=== PATIENT | female | born 1965 | race Caucasian/White ===

== ENCOUNTER 2017-02-18 17:14 | Emergency (ER) | payer BC ==
[2017-02-18] MEDS ORDERED: Sodium Chloride 0.9% 10 ML Syringe FLUSH PRN (17:39)
[2017-02-18] MEDS ORDERED: Sodium Chloride 0.9% 2,000 ML IV STA (17:39)
[2017-02-18] MEDS ORDERED: Ondansetron 4 MG/2 ML SDV IVPUSH ONE (17:39)
[2017-02-18] MEDS ORDERED: HYDROmorphone 1 MG/ML Syringe IVPUSH ONE (17:41)
[2017-02-18] MEDS ORDERED: LORazepam 2 MG/ML MDV IVPUSH ONE (17:41)
[2017-02-18] MEDS ORDERED: Sodium Chloride 0.9% 1,000 ML IV ONE (18:41)
--- NOTE | 2017-02-18 18:56 | EDM.PDOC ---
ED HPI GI/ABDOMINAL - General Chief Complaint: Gastrointestinal Problem Stated Complaint: VOMITING SINCE SUNDAY NIGHT Time Seen by Provider: 02/18/17 17:35 Source of Information: Reports: Patient History Limitations: Reports: No limitations - History of Present Illness INITIAL COMMENTS - FREE TEXT/NARRATIVE: The patient presents with nausea, vomiting and some watery diarrhea for the past couple of days. She has generalized abdominal pain also. She has a history of abdominal pain and issues like this. She has not been here in awhile. She has chills but no fever. She has no chest pain or shortness of breath. She has no gallbladder but she does have an appendix. Timing/Duration: Reports: Day(s): (2) Location: generalized Quality: Reports: ache Severity: mild Context: Denies: sick contact, bad/questionable food, out of country travel, recent surgery, recent trauma Associated Symptoms (-Female): Reports: diarrhea, fever/chills, nausea/ vomiting. Denies: chest pain, back pain, shoulder pain, loss of appetite - Related Data Allergies/ADRs: Allergies Allergy/AdvReac Type Severity Reaction Status Date / Time amoxicillin [Amoxicillin] Allergy Hives Verified 02/18/17 17:33 oxycodone HCl [From Percocet] Allergy Redness Verified 02/18/17 17:33 Home Meds: Home Meds Albuterol [Proair HFA] 2 puff INH Q4HR PRN #1 inhaler 02/11/14 [Rx] PARoxetine [Paxil] 30 mg PO DAILY 03/06/14 [History] LORazepam [Ativan] 1 mg PO ASDIRECTED #14 tablet 04/07/14 [Rx] risperiDONE [Risperdal] 2 mg PO DAILY 06/15/15 [History] Ondansetron [Zofran ODT] 4 mg PO Q6H PRN #20 tab.dis 10/30/16 [Rx] Dicyclomine [Bentyl] 20 mg IM Q6H #12 vial 10/31/16 [Rx] Hydrocodone/Acetaminophen [Hydrocodon-Acetaminophn 10-325] 1 - 2 tab PO DAILY [History] Metoclopramide HCl [Reglan] 10 mg PO Q6H PRN #12 tablet 10/31/16 [Rx] Ondansetron [Zofran ODT] 4 mg PO Q6H PRN #20 tab.dis 02/18/17 [Rx] Past Medical History - Past Health History Medical/Surgical History: Denies Medical/Surgical History Cardiovascular History: Reports: High cholesterol, Hypertension Respiratory History: Reports: Bronchitis, recurrent Gastrointestinal History: Reports: GERD, Hiatal hernia Genitourinary History: Reports: UTI, recurrent 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: Musculoskeletal History: Reports: Back pain, chronic Psychiatric History: Reports: Anxiety - Infectious Disease History Infectious Disease History: Reports: Chicken pox, Shingles - Past Surgical History GI Surgical History: Reports: Cholecystectomy Social & Family History - Family History Cardiac: Reports: Afib Other Cardiac Family History: father Musculoskeletal: Reports: Back pain, chronic Other Musculoskeletal Family History: brother and sister Endocrine/Metabolic: Reports: Diabetes, type II Other Endocrine/Metabolic Family History: father Other Oncologic Family History: mother and father unknown origin - Tobacco Use Smoking Status *Q: Current Every Day Smoker Years of Tobacco use: 30 Packs/Tins Daily: 1.5 Used Tobacco, but Quit: No Month Tobacco Last Used: October Second Hand Smoke Exposure: No - Caffeine Use Caffeine Use: Reports: None - Alcohol Use Days Per Week of Alcohol Use: 2 Number of Drinks Per Day: 2 Total Drinks Per Week: 4 - Recreational Drug Use Recreational Drug Use: No - Living Situation & Occupation Living situation: Reports: single Occupation: unemployed ED ROS GENERAL - Review of Systems Review Of Systems: See Below Constitutional: Reports: no symptoms HEENT: Reports: No symptoms Respiratory: Reports: No Symptoms Cardiovascular: Reports: No symptoms Endocrine: Reports: no symptoms GI/Abdominal: Reports: Abdominal pain, Diarrhea, Nausea, Vomiting ED EXAM, GI/ABD - Physical Exam Exam: See Below Exam Limited By: No limitations General Appearance: alert, no apparent distress Ears: normal external exam Nose: normal inspection Head: atraumatic, normocephalic Neck: normal inspection Respiratory/Chest: no respiratory distress, lungs clear, normal breath sounds Cardiovascular: regular rate, rhythm, no edema, no murmur GI/Abdominal: soft, no organomegaly, no mass, tenderness (Mild generalized tenderness) Back Exam: normal inspection Course - Vital Signs Last Recorded V/S: Last Vital Signs Temp 97.1 F 02/18/17 17:33 Pulse 72 02/18/17 17:33 Resp 20 02/18/17 17:33 BP 148/90 H 02/18/17 17:33 Pulse Ox 96 02/18/17 17:33 - Orders/Labs/Meds Orders: Active Orders 24 hr Category Date Time Status Peripheral IV Care [RC] . DIRECTED Care 02/18/17 17:40 Active HYDROmorphone [Dilaudid] Med 02/18/17 19:35 Once 0.5 mg IVPUSH ONETIME ONE Sodium Chloride 0.9% [Normal Saline] 2,000 ml Med 02/18/17 17:39 Active IV .BOLUS Sodium Chloride 0.9% [Saline Flush] Med 02/18/17 17:39 Active 10 ml FLUSH ASDIRECTED PRN Zolpidem [Ambien] Med 02/18/17 19:36 Once 5 mg PO ONETIME ONE ED Antiemetic Medication Reflex [OM.PC] Stat Oth 02/18/17 17:40 Ordered Peripheral IV Insertion Adult [OM.PC] Stat Oth 02/18/17 17:39 Ordered Medication Orders Sodium Chloride (Normal Saline) 2,000 mls @ 1,000 mls/hr IV .BOLUS STA Stop: 02/18/17 19:38 Last Admin: 02/18/17 18:00 Dose: 1,000 mls/hr Sodium Chloride (Saline Flush) 10 ml FLUSH ASDIRECTED PRN PRN Reason: Keep Vein Open Last Admin: 02/18/17 18:07 Dose: 10 ml Labs: Laboratory Tests 02/18/17 02/18/17 Range/Units 17:50 17:50 WBC 12.16 H (3.98-10.04) K/mm3 RBC 4.79 (3.98-5.22) M/mm3 Hgb 15.3 (11.2-15.7) gm/L Hct 44.7 (34.1-44.9) % MCV 93.3 (79.4-94.8) fl MCH 31.9 (25.6-32.2) pg MCHC 34.2 (32.2-35.5) g/dl RDW Std Deviation 45.1 (36.4-46.3) fL Plt Count 231 (182-369) K/mm3 MPV 10.3 (9.4-12.3) fl Neut % (Auto) 84.1 H (34.0-71.1) % Lymph % (Auto) 10.8 L (19.3-51.7) % [place] % (Auto) 4.5 L (4.7-12.5) % Eos % (Auto) 0.1 L (0.7-5.8) Baso % (Auto) 0.2 (0.1-1.2) % Neut # (Auto) 10.22 H (1.56-6.13) K/mm3 Lymph # (Auto) 1.31 (1.18-3.74) K/mm3 [place] # (Auto) 0.55 H (0.24-0.36) K/mm3 Eos # (Auto) 0.01 L (0.04-0.36) K/mm3 Baso # (Auto) 0.03 (0.01-0.08) K/mm3 Sodium 140 (136-145) mEq/L Potassium 3.6 (3.5-5.1) mEq/L Chloride 102 (98-107) mEq/L Carbon Dioxide 24 (21-32) mEq/L Anion Gap 17.6 H (5-15) BUN 23 H (7-18) mg/dL Creatinine 0.9 (0.55-1.02) mg/dL Est Cr Clr Drug Dosing 59.80 mL/min Estimated GFR (MDRD) > 60 (>60) mL/min BUN/Creatinine Ratio 25.6 H (14-18) Glucose 178 H (74-106) mg/dL Calcium 9.8 (8.5-10.1) mg/dL Total Bilirubin 0.7 (0.2-1.0) mg/dL AST 24 (15-37) U/L ALT 40 (14-59) U/L Alkaline Phosphatase 68 (46-116) U/L Total Protein 8.5 H (6.4-8.2) g/dl Albumin 4.4 (3.4-5.0) g/dl Globulin 4.1 gm/dL Albumin/Globulin Ratio 1.1 (1-2) Lipase 88 (73-393) U/L Ethyl Alcohol 0.00 (0.00) gm% Meds: Medications Generic Name Dose Route Start Last Admin Trade Name Freq PRN Reason Stop Dose Admin Sodium Chloride 2,000 mls @ 1,000 mls/hr 02/18/17 17:39 02/18/17 18:00 Normal Saline IV 02/18/17 19:38 1,000 mls/hr .BOLUS STA Administration Sodium Chloride 10 ml 02/18/17 17:39 02/18/17 18:07 Saline Flush FLUSH 10 ml ASDIRECTED PRN Administration Keep Vein Open Discontinued Medications Generic Name Dose Route Start Last Admin Trade Name Leoncio PRN Reason Stop Dose Admin Hydromorphone HCl 1 mg 02/18/17 17:41 02/18/17 18:03 Dilaudid IVPUSH 02/18/17 17:42 1 mg ONETIME ONE Administration Sodium Chloride 1,000 mls @ 1,000 mls/hr 02/18/17 18:41 02/18/17 18:59 Normal Saline IV 02/18/17 19:40 1,000 mls/hr ONETIME ONE Administration Lorazepam 1 mg 02/18/17 17:41 02/18/17 18:34 Ativan IVPUSH 02/18/17 17:42 1 mg ONETIME ONE Administration Ondansetron HCl 4 mg 02/18/17 17:39 02/18/17 18:01 Zofran IVPUSH 02/18/17 17:40 4 mg ONETIME ONE Administration - Re-Assessments/Exams Free Text/Narrative Re-Assessment/Exam: 02/18/17 18:54 I ordered an IV NS 1L bolus, zofran 4mg IV and dilaudid 1mg IV. 02/18/17 18:55 Her WBC is elevated at 12.16. Her anion gap is elevated at 17.6. Her BUN is elevated at 23. Her glucose is elevated at 178. Her AST and ALT are normal. Her lipase is negative. Her ETOH is negative. 02/18/17 18:56 I will give her another liter of fluid and I will discharge her on some zofran. 02/18/17 19:36 She is still having some pain so I ordered some dilaudid 0.5mg IV. She is out of her ambien and asked for a dose here before she goes so she can sleep. I will order that. Departure - Departure Time of Disposition: 19:35 Disposition: Home, Self-Care 01 Condition: good Clinical Impression: Vomiting Abdominal pain Qualifiers: Abdominal location: generalized Qualified Code(s): R10.84 - Generalized abdominal pain Prescriptions: Ondansetron [Zofran ODT] 4 mg PO Q6H PRN #20 tab.dis PRN Reason: Nausea/Vomiting Forms: ED Department Discharge Additional Instructions: Take the zofran every 6 hours as needed for nausea and vomiting. Take your other medication as prescribed. Please return if you are worse. - My Orders Last 24 Hours: My Active Orders 02/18/17 17:39 Sodium Chloride 0.9% [Normal Saline] 2,000 ml IV .BOLUS Sodium Chloride 0.9% [Saline Flush] 10 ml FLUSH ASDIRECTED PRN Peripheral IV Insertion Adult [OM.PC] Stat 02/18/17 17:40 Peripheral IV Care [RC] . DIRECTED ED Antiemetic Medication Reflex [OM.PC] Stat 02/18/17 19:35 HYDROmorphone [Dilaudid] 0.5 mg IVPUSH ONETIME ONE 02/18/17 19:36 Zolpidem [Ambien] 5 mg PO ONETIME ONE - Assessment/Plan Last 24 Hours: My Active Orders 02/18/17 17:39 Sodium Chloride 0.9% [Normal Saline] 2,000 ml IV .BOLUS Sodium Chloride 0.9% [Saline Flush] 10 ml FLUSH ASDIRECTED PRN Peripheral IV Insertion Adult [OM.PC] Stat 02/18/17 17:40 Peripheral IV Care [RC] . DIRECTED ED Antiemetic Medication Reflex [OM.PC] Stat 02/18/17 19:35 HYDROmorphone [Dilaudid] 0.5 mg IVPUSH ONETIME ONE 02/18/17 19:36 Zolpidem [Ambien] 5 mg PO ONETIME ONE
[2017-02-18] MEDS ORDERED: HYDROmorphone 0.5 MG/0.5 ML Syringe IVPUSH ONE (19:35)
[2017-02-18] MEDS ORDERED: Zolpidem 10 MG Tab PO ONE (19:36)
[2017-02-18 21:08] VITALS: BP 134/84
== END 2017-02-18 20:50 | disposition home or self-care (01) ==
LOC: JD.ED 17:14
DX: R11.2 Nausea with vomiting, unspecified (principal); R10.84 Generalized abdominal pain; E78.00 Pure hypercholesterolemia, unspecified; I10 Essential (primary) hypertension; F17.210 Nicotine dependence, cigarettes, uncomplicated; Z88.1 Allergy status to other antibiotic agents; Z88.5 Allergy status to narcotic agent; Z79.899 Other long term (current) drug therapy
CPT/HCPCS: 36415; 80053; 83690; 85025; 96361; 96374; 96375; 96376; 99284; A9270; G0480; J1170; J2060; J2405; J7040; J7050

== ENCOUNTER 2017-02-19 15:26 | Emergency (ER) | payer BC ==
[2017-02-19 15:42] VITALS: BP 165/123
[2017-02-19] MEDS ORDERED: Ondansetron 4 MG/2 ML SDV IVPUSH ONE (16:04)
[2017-02-19] MEDS ORDERED: Famotidine 20 MG/2 ML SDV IVPUSH ONE (16:04)
[2017-02-19] MEDS ORDERED: Sodium Chloride 0.9% 10 ML Syringe FLUSH PRN (16:04)
[2017-02-19] MEDS ORDERED: Sodium Chloride 0.9% 1,000 ML IV SCH (16:15)
[2017-02-19] MEDS ORDERED: LORazepam 2 MG/ML MDV IVPUSH ONE (16:34)
[2017-02-19] MEDS ORDERED: Ketorolac 30 MG/ML SDV IVPUSH SCH (17:00)
[2017-02-19] MEDS ORDERED: HYDROmorphone 0.5 MG/0.5 ML Syringe IVPUSH ONE (17:49)
[2017-02-19] MEDS ORDERED: Metoclopramide 10 MG/2 ML SDV IVPUSH ONE (18:13)
--- NOTE | 2017-02-19 18:33 | EDM.PDOC ---
ED HPI GI/ABDOMINAL - General Chief Complaint: Abdominal Pain Stated Complaint: NAUSEA, HOT AND COLD Time Seen by Provider: 02/19/17 16:00 Source of Information: Reports: Patient, RN notes reviewed - History of Present Illness INITIAL COMMENTS - FREE TEXT/NARRATIVE: 51-year-old female comes in with abdominal pain, nausea and vomiting. This all started several days ago. She was seen here in the ED yesterday, treated with IV fluid and had appropriate lab studies done. She states she felt much better during the night but then this morning awakened with recurrent abdominal cramps , nausea and vomiting. She also had been having some diarrhea but that has stopped. Her pain is primarily upper mid abdominal. She states she continues to feel nauseated on arrival to the ED. No chest pain or difficulty breathing. She has not been running fever today. - Related Data Allergies/ADRs: Allergies Allergy/AdvReac Type Severity Reaction Status Date / Time amoxicillin [Amoxicillin] Allergy Hives Verified 02/19/17 15:38 oxycodone HCl [From Percocet] Allergy Redness Verified 02/19/17 15:38 Home Meds: Home Meds Albuterol [Proair HFA] 2 puff INH Q4HR PRN #1 inhaler 02/11/14 [Rx] PARoxetine [Paxil] 30 mg PO DAILY 03/06/14 [History] LORazepam [Ativan] 1 mg PO ASDIRECTED #14 tablet 04/07/14 [Rx] risperiDONE [Risperdal] 2 mg PO DAILY 06/15/15 [History] Ondansetron [Zofran ODT] 4 mg PO Q6H PRN #20 tab.dis 10/30/16 [Rx] Dicyclomine [Bentyl] 20 mg IM Q6H #12 vial 10/31/16 [Rx] Hydrocodone/Acetaminophen [Hydrocodon-Acetaminophn 10-325] 1 - 2 tab PO DAILY [History] Metoclopramide HCl [Reglan] 10 mg PO Q6H PRN #12 tablet 10/31/16 [Rx] Ondansetron [Zofran ODT] 4 mg PO Q6H PRN #20 tab.dis 02/18/17 [Rx] Past Medical History - Past Health History Medical/Surgical History: Denies Medical/Surgical History Cardiovascular History: Reports: High cholesterol, Hypertension Respiratory History: Reports: Bronchitis, recurrent Gastrointestinal History: Reports: GERD, Hiatal hernia Genitourinary History: Reports: UTI, recurrent 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: Musculoskeletal History: Reports: Back pain, chronic Psychiatric History: Reports: Anxiety - Infectious Disease History Infectious Disease History: Reports: Chicken pox, Shingles - Past Surgical History GI Surgical History: Reports: Cholecystectomy Social & Family History - Family History Cardiac: Reports: Afib Other Cardiac Family History: father Musculoskeletal: Reports: Back pain, chronic Other Musculoskeletal Family History: brother and sister Endocrine/Metabolic: Reports: Diabetes, type II Other Endocrine/Metabolic Family History: father Other Oncologic Family History: mother and father unknown origin - Tobacco Use Smoking Status *Q: Current Every Day Smoker Years of Tobacco use: 25 Packs/Tins Daily: 1.5 Used Tobacco, but Quit: No Month Tobacco Last Used: October Hand Smoke Exposure: No - Caffeine Use Caffeine Use: Reports: None - Alcohol Use Days Per Week of Alcohol Use: 2 Number of Drinks Per Day: 2 Total Drinks Per Week: 4 - Recreational Drug Use Recreational Drug Use: No - Living Situation & Occupation Living situation: Reports: single Occupation: unemployed ED ROS GENERAL - Review of Systems Review Of Systems: See Below Constitutional: Reports: chills. Denies: fever HEENT: Denies: Throat pain Respiratory: Denies: Shortness of Breath, Pleuritic Chest Pain Cardiovascular: Denies: Chest pain GI/Abdominal: Reports: Abdominal pain (Intermittent abdominal cramping), Diarrhea (Gone), Nausea, Vomiting Musculoskeletal: Reports: other (Gen. achiness) Skin: Denies: rash Neurological: Reports: Dizziness, Weakness (Generalized) ED EXAM, GI/ABD - Physical Exam Exam: See Below General Appearance: alert, anxious, moderate distress Throat/Mouth: Normal inspection, Other (Oral mucosa mildly dry) Head: No: facial swelling Neck: supple, full range of motion Respiratory/Chest: no respiratory distress, lungs clear, normal breath sounds Cardiovascular: regular rate, rhythm GI/Abdominal: tenderness (Moderate upper mid abdominal and periumbilical tenderness). No: guarding, rebound Extremities: normal inspection, normal range of motion Neurological: alert, no motor/sensory deficits Skin Exam: Warm, Dry Course - Vital Signs Last Recorded V/S: Last Vital Signs Temp 98.6 F 02/19/17 15:38 Pulse 85 02/19/17 15:38 Resp 20 02/19/17 15:38 BP 165/123 H 02/19/17 15:38 Pulse Ox 94 L 02/19/17 15:38 - Orders/Labs/Meds Orders: Active Orders 24 hr Category Date Time Status Peripheral IV Care [RC] . DIRECTED Care 02/19/17 16:04 Active Ketorolac [Toradol] Med 02/19/17 17:00 Active 30 mg IVPUSH ONETIME Sodium Chloride 0.9% [Normal Saline] 1,000 ml Med 02/19/17 16:15 Active IV ONETIME Sodium Chloride 0.9% [Saline Flush] Med 02/19/17 16:04 Active 10 ml FLUSH ASDIRECTED PRN Peripheral IV Insertion Adult [OM.PC] Stat Oth 02/19/17 16:03 Ordered Medication Orders Sodium Chloride (Normal Saline) 1,000 mls @ 999 mls/hr IV ONETIME DAVID Last Admin: 02/19/17 16:29 Dose: 999 mls/hr Ketorolac Tromethamine (Toradol) 30 mg IVPUSH ONETIME DAVID Last Admin: 02/19/17 17:01 Dose: 30 mg Sodium Chloride (Saline Flush) 10 ml FLUSH ASDIRECTED PRN PRN Reason: Keep Vein Open Last Admin: 02/19/17 16:32 Dose: 10 ml Labs: Laboratory Tests 02/19/17 02/19/17 Range/Units 16:15 16:15 WBC 12.15 H (3.98-10.04) K/mm3 RBC 4.32 (3.98-5.22) M/mm3 Hgb 13.6 (11.2-15.7) gm/L Hct 41.1 (34.1-44.9) % MCV 95.1 H (79.4-94.8) fl MCH 31.5 (25.6-32.2) pg MCHC 33.1 (32.2-35.5) g/dl RDW Std Deviation 45.6 (36.4-46.3) fL Plt Count 191 (182-369) K/mm3 MPV 10.1 (9.4-12.3) fl Neut % (Auto) 79.4 H (34.0-71.1) % Lymph % (Auto) 13.7 L (19.3-51.7) % [place] % (Auto) 6.0 (4.7-12.5) % Eos % (Auto) 0.2 L (0.7-5.8) Baso % (Auto) 0.2 (0.1-1.2) % Neut # (Auto) 9.65 H (1.56-6.13) K/mm3 Lymph # (Auto) 1.66 (1.18-3.74) K/mm3 [place] # (Auto) 0.73 H (0.24-0.36) K/mm3 Eos # (Auto) 0.03 L (0.04-0.36) K/mm3 Baso # (Auto) 0.02 (0.01-0.08) K/mm3 Sodium 140 (136-145) mEq/L Potassium 3.5 (3.5-5.1) mEq/L Chloride 104 (98-107) mEq/L Carbon Dioxide 27 (21-32) mEq/L Anion Gap 12.5 (5-15) BUN 22 H (7-18) mg/dL Creatinine 0.7 (0.55-1.02) mg/dL Est Cr Clr Drug Dosing TNP Estimated GFR (MDRD) > 60 (>60) mL/min BUN/Creatinine Ratio 31.4 H (14-18) Glucose 137 H (74-106) mg/dL Calcium 9.2 (8.5-10.1) mg/dL Total Bilirubin 0.5 (0.2-1.0) mg/dL AST 20 (15-37) U/L ALT 33 (14-59) U/L Alkaline Phosphatase 59 (46-116) U/L Total Protein 7.5 (6.4-8.2) g/dl Albumin 3.8 (3.4-5.0) g/dl Globulin 3.7 gm/dL Albumin/Globulin Ratio 1.0 (1-2) Meds: Medications Generic Name Dose Route Start Last Admin Trade Name Freq PRN Reason Stop Dose Admin Sodium Chloride 1,000 mls @ 999 mls/hr 02/19/17 16:15 02/19/17 16:29 Normal Saline IV 999 mls/hr ONETIME DAVID Administration Ketorolac Tromethamine 30 mg 02/19/17 17:00 02/19/17 17:01 Toradol IVPUSH 30 mg ONETIME DAVID Administration Sodium Chloride 10 ml 02/19/17 16:04 02/19/17 16:32 Saline Flush FLUSH 10 ml ASDIRECTED PRN Administration Keep Vein Open Discontinued Medications Generic Name Dose Route Start Last Admin Trade Name Leoncio PRN Reason Stop Dose Admin Famotidine 20 mg 02/19/17 16:04 02/19/17 16:29 Pepcid IVPUSH 02/19/17 16:05 20 mg ONETIME ONE Administration Hydromorphone HCl 0.5 mg 02/19/17 17:49 02/19/17 17:59 Dilaudid IVPUSH 02/19/17 17:50 0.5 mg ONETIME ONE Administration Lorazepam 1 mg 02/19/17 16:34 02/19/17 16:41 Ativan IVPUSH 02/19/17 16:35 1 mg ONETIME ONE Administration Metoclopramide HCl 5 mg 02/19/17 18:13 02/19/17 18:22 Reglan IVPUSH 02/19/17 18:14 5 mg ONETIME ONE Administration Ondansetron HCl 4 mg 02/19/17 16:04 02/19/17 16:30 Zofran IVPUSH 02/19/17 16:05 4 mg ONETIME ONE Administration - Re-Assessments/Exams Free Text/Narrative Re-Assessment/Exam: 02/19/17 18:55 Chart reviewed from yesterday. Her labs yesterday did show some mild dehydration. Today chemistries are normal. We have given 1 L of IV fluid, IV Pepcid, IV Zofran, Reglan, Ativan and 0.5 mg a log with all of that she is feeling better. No longer vomiting, discharge instructions as documented Departure - Departure Time of Disposition: 18:29 Disposition: Home, Self-Care 01 Condition: fair Clinical Impression: Abdominal pain Qualifiers: Abdominal location: generalized Qualified Code(s): R10.84 - Generalized abdominal pain Vomiting Qualifiers: Vomiting type: unspecified Vomiting Intractability: non-intractable Nausea presence: with nausea Qualified Code(s): R11.2 - Nausea with vomiting, unspecified Instructions: Abdominal Pain, Adult, [id number], Nausea and Vomiting, Adult Referrals: Lily Pineda NP [Primary Care Provider] - Forms: ED Department Discharge Additional Instructions: Clear liquids until tomorrow afternoon, then very careful bland diet as tolerated, Zofran every 6-8 hours if needed for further nausea or vomiting. Probiotic twice daily. Followup clinic if not much better within 2-3 days as expected. - My Orders Last 24 Hours: My Active Orders 02/19/17 16:03 Peripheral IV Insertion Adult [OM.PC] Stat 02/19/17 16:04 Peripheral IV Care [RC] . DIRECTED Sodium Chloride 0.9% [Saline Flush] 10 ml FLUSH ASDIRECTED PRN 02/19/17 16:15 Sodium Chloride 0.9% [Normal Saline] 1,000 ml IV ONETIME 02/19/17 17:00 Ketorolac [Toradol] 30 mg IVPUSH ONETIME - Assessment/Plan Last 24 Hours: My Active Orders 02/19/17 16:03 Peripheral IV Insertion Adult [OM.PC] Stat 02/19/17 16:04 Peripheral IV Care [RC] . DIRECTED Sodium Chloride 0.9% [Saline Flush] 10 ml FLUSH ASDIRECTED PRN 02/19/17 16:15 Sodium Chloride 0.9% [Normal Saline] 1,000 ml IV ONETIME 02/19/17 17:00 Ketorolac [Toradol] 30 mg IVPUSH ONETIME
== END 2017-02-19 18:52 | disposition home or self-care (01) ==
LOC: JD.ED 15:26
DX: R10.84 Generalized abdominal pain (principal); R10.33 Periumbilical pain; R11.2 Nausea with vomiting, unspecified; E78.00 Pure hypercholesterolemia, unspecified; I10 Essential (primary) hypertension; K21.9 Gastro-esophageal reflux disease without esophagitis; Z87.440 Personal history of urinary (tract) infections; F41.9 Anxiety disorder, unspecified; F17.210 Nicotine dependence, cigarettes, uncomplicated; Z88.1 Allergy status to other antibiotic agents; Z88.6 Allergy status to analgesic agent; Z79.899 Other long term (current) drug therapy; Z90.49 Acquired absence of other specified parts of digestive tract
CPT/HCPCS: 36415; 80053; 85025; 96361; 96374; 96375; 99284; J1170; J1885; J2060; J2405; J2765; J7040; J7050

== ENCOUNTER 2017-02-20 18:05 | Emergency (ER) | payer BC ==
[2017-02-20 18:18] VITALS: BP 182/103
[2017-02-20] MEDS ORDERED: Ondansetron 4 MG/2 ML SDV IVPUSH ONE (18:33)
[2017-02-20] MEDS ORDERED: Sodium Chloride 0.9% 10 ML Syringe FLUSH PRN (18:33)
[2017-02-20] MEDS ORDERED: LORazepam 2 MG/ML MDV IVPUSH ONE ×2 (18:35→20:28)
[2017-02-20] MEDS ORDERED: Sodium Chloride 0.9% 1,000 ML IV ONE (18:35)
[2017-02-20] MEDS ORDERED: HYDROmorphone 0.5 MG/0.5 ML Syringe IVPUSH ONE (18:35)
[2017-02-20] MEDS ORDERED: Alum Hydrox/Mag Hydrox/Simeth 30 ML, Lidocaine 2% 15 ML PO ONE ×2 (18:35)
--- NOTE | 2017-02-20 18:38 | EDM.PDOC ---
ED HPI GI/ABDOMINAL - General Chief Complaint: Gastrointestinal Problem Stated Complaint: BACK PN, LIGHT HEADED, NAUSEA Time Seen by Provider: 02/20/17 18:23 Source of Information: Reports: Patient, Old records History Limitations: Reports: No limitations - History of Present Illness INITIAL COMMENTS - FREE TEXT/NARRATIVE: Patient is a 51-year-old female presents ED complaining of epigastric/ suprapubic abdominal pain, nausea, and vomiting for the past few days. Patient was evaluated February 18, 2017 and February 19, 2017 for similar symptoms. Patient states she has received some relief throughout the night after receiving IV fluids and pain medications only to have discomfort return in the morning. Continues to have a poor appetite. States she has received some nausea relief with zofran. Denies recent sick contacts, dysuria, documented fever, rash, CP, SOB, or any additional complaints. Timing/Duration: Reports: Constant Location: other (epigastric) Quality: Reports: ache, cramping Severity: moderate Improves with: Reports: vomiting Worsens with: Reports: palpation Context: Denies: sick contact, bad/questionable food, out of country travel, recent surgery Associated Symptoms (-Female): Reports: fever/chills, loss of appetite, malaise, nausea/vomiting. 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 (see below) (See HPI) - Related Data Allergies/ADRs: Allergies Allergy/AdvReac Type Severity Reaction Status Date / Time amoxicillin [Amoxicillin] Allergy Hives Verified 02/20/17 18:12 oxycodone HCl [From Percocet] Allergy Redness Verified 02/20/17 18:12 Home Meds: Home Meds Albuterol [Proair HFA] 2 puff INH Q4HR PRN #1 inhaler 02/11/14 [Rx] PARoxetine [Paxil] 30 mg PO DAILY 03/06/14 [History] LORazepam [Ativan] 1 mg PO ASDIRECTED #14 tablet 04/07/14 [Rx] Hydrocodone/Acetaminophen [Hydrocodon-Acetaminophn 10-325] 1 - 2 tab PO DAILY [History] Ondansetron [Zofran ODT] 4 mg PO Q6H PRN #20 tab.dis 02/18/17 [Rx] Nitrofurantoin Monohyd/M-Cryst [Macrobid 100 mg Capsule] 100 mg PO BID #14 capsule 02/20/17 [Rx] Zolpidem Tartrate [Ambien] 10 mg PO DAILY 02/20/17 [History] Past Medical History - Past Health History Medical/Surgical History: Denies Medical/Surgical History Cardiovascular History: Reports: High cholesterol, Hypertension Respiratory History: Reports: Bronchitis, recurrent Gastrointestinal History: Reports: GERD, Hiatal hernia Genitourinary History: Reports: UTI, recurrent 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: Musculoskeletal History: Reports: Back pain, chronic Psychiatric History: Reports: Anxiety - Infectious Disease History Infectious Disease History: Reports: Chicken pox, Shingles - Past Surgical History GI Surgical History: Reports: Cholecystectomy Social & Family History - Family History Cardiac: Reports: Afib Other Cardiac Family History: father Musculoskeletal: Reports: Back pain, chronic Other Musculoskeletal Family History: brother and sister Endocrine/Metabolic: Reports: Diabetes, type II Other Endocrine/Metabolic Family History: father Other Oncologic Family History: mother and father unknown origin - Tobacco Use Smoking Status *Q: Current Every Day Smoker Years of Tobacco use: 35 Packs/Tins Daily: 1.5 Used Tobacco, but Quit: No Month Tobacco Last Used: October Second Hand Smoke Exposure: No - Caffeine Use Caffeine Use: Reports: None - Alcohol Use Days Per Week of Alcohol Use: 2 Number of Drinks Per Day: 2 Total Drinks Per Week: 4 - Recreational Drug Use Recreational Drug Use: No - Living Situation & Occupation Living situation: Reports: single Occupation: unemployed ED ROS GENERAL - Review of Systems Review Of Systems: ROS reveals no pertinent complaints other than HPI. ED EXAM, GI/ABD - Physical Exam Exam: See Below Exam Limited By: No limitations General Appearance: alert, WD/WN, anxious, mild distress Eyes: bilateral: normal appearance Ears: normal external exam, normal canal, hearing grossly normal, normal TMs Nose: normal inspection Throat/Mouth: Normal inspection, Normal oropharynx, Normal voice, No airway compromise Neck: normal inspection, supple, non-tender, full range of motion. No: lymphadenopathy (L), lymphadenopathy (R) Respiratory/Chest: no respiratory distress, lungs clear, normal breath sounds, no accessory muscle use, chest non-tender Cardiovascular: normal peripheral pulses, regular rate, rhythm GI/Abdominal: normal bowel sounds, soft, no organomegaly, no distention, other ( mild epigastric and suprapubic pain. ). No: distention, McBurney's sign, Shepherd 's sign Back Exam: normal inspection. No: CVA tenderness (L), CVA tenderness (R) Neurological: alert, oriented, CN II-XII intact, normal cognition, no motor/ sensory deficits Psychiatric: anxious Skin Exam: Warm, Dry, Intact, Normal color, No rash Course - Vital Signs Last Recorded V/S: Last Vital Signs Temp 96.7 F 02/20/17 18:12 Pulse 73 02/20/17 18:12 Resp 20 02/20/17 18:12 BP 182/103 H 02/20/17 18:12 Pulse Ox 97 02/20/17 18:12 - Orders/Labs/Meds Orders: Active Orders 24 hr Category Date Time Status Peripheral IV Care [RC] . DIRECTED Care 02/20/17 18:35 Active Abdomen 2V AP Flat Upright [CR] Stat Exams 02/20/17 18:33 Taken CULTURE URINE [RM] Stat Lab 02/20/17 19:40 Received Sodium Chloride 0.9% [Saline Flush] Med 02/20/17 18:33 Active 10 ml FLUSH ASDIRECTED PRN Peripheral IV Insertion Adult [OM.PC] Stat Oth 02/20/17 18:33 Ordered Medication Orders Sodium Chloride (Saline Flush) 10 ml FLUSH ASDIRECTED PRN PRN Reason: Keep Vein Open Last Admin: 02/20/17 19:04 Dose: 10 ml Labs: Laboratory Tests 02/20/17 02/20/17 02/20/17 Range/Units 18:43 18:43 19:40 WBC 10.56 H (3.98-10.04) K/mm3 RBC 4.21 (3.98-5.22) M/mm3 Hgb 13.3 (11.2-15.7) gm/L Hct 39.1 (34.1-44.9) % MCV 92.9 (79.4-94.8) fl MCH 31.6 (25.6-32.2) pg MCHC 34.0 (32.2-35.5) g/dl RDW Std Deviation 42.7 (36.4-46.3) fL Plt Count 184 (182-369) K/mm3 MPV 10.7 (9.4-12.3) fl Neut % (Auto) 69.9 (34.0-71.1) % Lymph % (Auto) 21.3 (19.3-51.7) % [place] % (Auto) 7.4 (4.7-12.5) % Eos % (Auto) 0.7 (0.7-5.8) Baso % (Auto) 0.4 (0.1-1.2) % Neut # (Auto) 7.39 H (1.56-6.13) K/mm3 Lymph # (Auto) 2.25 (1.18-3.74) K/mm3 [place] # (Auto) 0.78 H (0.24-0.36) K/mm3 Eos # (Auto) 0.07 (0.04-0.36) K/mm3 Baso # (Auto) 0.04 (0.01-0.08) K/mm3 Sodium 139 (136-145) mEq/L Potassium 3.4 L (3.5-5.1) mEq/L Chloride 102 (98-107) mEq/L Carbon Dioxide 26 (21-32) mEq/L Anion Gap 14.4 (5-15) BUN 13 (7-18) mg/dL Creatinine 0.7 (0.55-1.02) mg/dL Est Cr Clr Drug Dosing TNP Estimated GFR (MDRD) > 60 (>60) mL/min BUN/Creatinine Ratio 18.6 H (14-18) Glucose 130 H (74-106) mg/dL Calcium 8.9 (8.5-10.1) mg/dL Total Bilirubin 0.6 (0.2-1.0) mg/dL AST 75 H (15-37) U/L ALT 88 H (14-59) U/L Alkaline Phosphatase 59 (46-116) U/L C-Reactive Protein 0.4 (<1.0) mg/dL Total Protein 7.4 (6.4-8.2) g/dl Albumin 3.7 (3.4-5.0) g/dl Globulin 3.7 gm/dL Albumin/Globulin Ratio 1.0 (1-2) Lipase 164 (73-393) U/L Urine Color Yellow (Yellow) Urine Appearance Slt cloudy H (Clear) Urine pH 7.0 (5.0-8.0) Ur Specific [place] 1.025 (1.005-1.030) Urine Protein 2+ H (Negative) Urine Glucose (UA) Negative (Negative) Urine Ketones Negative (Negative) Urine Occult Blood 1+ H (Negative) Urine Nitrite Negative (Negative) Urine Bilirubin 1+ H (Negative) Urine Urobilinogen 4.0 H (0.2-1.0) Ur Leukocyte Esterase Trace H (Negative) Urine RBC 5-10 H (0-5) /hpf Urine WBC 20-30 H (0-5) /hpf Urine WBC Clumps Rare (NOT SEEN) /hpf Ur Epithelial Cells 0-5 (0-5) /hpf Urine Bacteria Moderate H (FEW) /hpf Urine Mucus Many H (FEW) /hpf Ethyl Alcohol 0.00 (0.00) gm% Meds: Medications Generic Name Dose Route Start Last Admin Trade Name Freq PRN Reason Stop Dose Admin Sodium Chloride 10 ml 02/20/17 18:33 02/20/17 19:04 Saline Flush FLUSH 10 ml ASDIRECTED PRN Administration Keep Vein Open Discontinued Medications Generic Name Dose Route Start Last Admin Trade Name Freq PRN Reason Stop Dose Admin Al Hydroxide/Mg Hydroxide 30 0 ml 02/20/17 18:35 02/20/17 19:00 ml/ Lidocaine HCl 15 ml PO 02/20/17 18:36 45 ml ONETIME ONE Administration Hydromorphone HCl 0.5 mg 02/20/17 18:35 02/20/17 18:53 Dilaudid IVPUSH 02/20/17 18:36 0.5 mg ONETIME ONE Administration Sodium Chloride 1,000 mls @ 999 mls/hr 02/20/17 18:35 02/20/17 18:50 Normal Saline IV 02/20/17 19:35 999 mls/hr ONETIME ONE Administration Lorazepam 0.5 mg 02/20/17 18:35 02/20/17 18:57 Ativan IVPUSH 02/20/17 18:36 0.5 mg ONETIME ONE Administration Lorazepam 0.5 mg 02/20/17 20:28 02/20/17 20:37 Ativan IVPUSH 02/20/17 20:29 0.5 mg ONETIME ONE Administration Nitrofurantoin Macrocrystals 100 mg 02/20/17 20:29 02/20/17 20:35 Macrobid PO 02/20/17 20:30 100 mg ONETIME ONE Administration Ondansetron HCl 4 mg 02/20/17 18:33 02/20/17 18:51 Zofran IVPUSH 02/20/17 18:34 4 mg ONETIME ONE Administration - Re-Assessments/Exams Free Text/Narrative Re-Assessment/Exam: 02/20/17 18:37 Ordered peripheral IV with normal saline 999 mls per hour, Zofran 4 mg IVP, Dilaudid 0.5 mg IVP, Ativan 0.5 mg IVP, GI cocktail CBC, chem 14, CRP, lipase, UA, EtOH, and xray flat/upright of the abdomen. 02/20/17 19:35 Reassessment, patient is resting comfortably in bed with no complaints. States pain to the abdomen has resolved. She has not provided a UA sample. States she can try. She is requesting ativan and/or dilaudid prior to discharge to get her through the evening. She is on Ativan and [place] 10-325 mg at home. States she's been decreasing from 2 tabs a day to one tab only. She' s being treated for lower back pain. I question with current symptoms if patient is having withdrawl symptoms from narcotics since she has been here 2 additional times over the past few days for similar complaints and requests. 02/20/17 19:40 Per nursing staff patient return back to her room after providing a urine sample and proceeded to go to the side of the bed and started to gag. Nursing staff noted the patient had her finger down her throat making herself gag. Patient stated sometimes she has to make herself throw up. 02/20/17 20:29 UA positive for UTI. Urine culture obtained. Ordered ativan 0.5mg IV and macrobid 100mg PO. Will discharge patient home with instructions for UTI and prescription for macrobid. Departure - Departure Time of Disposition: 20:52 Disposition: Home, Self-Care 01 Condition: fair Clinical Impression: Abdominal pain, Elevated LFTs, Hypokalemia, Hypomagnesemia, Anxiety disorder, Gastritis UTI (urinary tract infection) Qualifiers: Urinary tract infection type: site unspecified Hematuria presence: with hematuria Qualified Code(s): N39.0 - Urinary tract infection, site not specified Prescriptions: Nitrofurantoin Monohyd/M-Cryst [Macrobid 100 mg Capsule] 100 mg PO BID #14 capsule Instructions: Nausea and Vomiting, Adult, [id number] Referrals: Lily Pineda NP [Primary Care Provider] - Forms: ED Department Discharge Additional Instructions: UA revealed UTI. Take macrobid as prescribed. Followup with PCP to ensure resolution. Continue to take zofran 4mg ODT every 6 hours for nausea. Push the fluids (gatorade, powerade, pedialyte). Advance diet as tolerated. In addition liver enzymes were mildly elevated, potassium mildly low, and magnesium mildly low.Will have the PCP reevaluate at that time of followup as well. No driving this evening. Return to the E.D. for any new or worsening symptoms. - My Orders Last 24 Hours: My Active Orders 02/20/17 18:33 Abdomen 2V AP Flat Upright [CR] Stat Sodium Chloride 0.9% [Saline Flush] 10 ml FLUSH ASDIRECTED PRN Peripheral IV Insertion Adult [OM.PC] Stat 02/20/17 18:35 Peripheral IV Care [RC] . DIRECTED 02/20/17 19:40 CULTURE URINE [RM] Stat - Assessment/Plan Last 24 Hours: My Active Orders 02/20/17 18:33 Abdomen 2V AP Flat Upright [CR] Stat Sodium Chloride 0.9% [Saline Flush] 10 ml FLUSH ASDIRECTED PRN Peripheral IV Insertion Adult [OM.PC] Stat 02/20/17 18:35 Peripheral IV Care [RC] . DIRECTED 02/20/17 19:40 CULTURE URINE [RM] Stat
[2017-02-20] MEDS ORDERED: Nitrofurantoin Monohydrate/Macrocrystalline 100 MG Cap PO ONE (20:29)
--- NOTE | 2017-02-21 08:16 | CR ---
Abdomen: Supine and upright views of the abdomen were obtained. Comparison: Previous abdominal x-ray of 06/17/15. Scattered gas within small bowel and colon is seen. Several air-fluid levels are seen on the upright view which can be seen normally. No free air is seen. Surgical clips are noted presumably from prior cholecystectomy. No abnormal calcifications or soft tissue abnormality is appreciated. Impression: 1. Incidental findings. Diagnostic code #2
== END 2017-02-20 21:09 | disposition home or self-care (01) ==
LOC: JD.ED 18:05
DX: K29.70 Gastritis, unspecified, without bleeding (principal); N39.0 Urinary tract infection, site not specified; R31.9 Hematuria, unspecified; E87.6 Hypokalemia; F41.9 Anxiety disorder, unspecified; E83.42 Hypomagnesemia; I10 Essential (primary) hypertension; E78.00 Pure hypercholesterolemia, unspecified; K21.9 Gastro-esophageal reflux disease without esophagitis; Z79.899 Other long term (current) drug therapy; Z90.49 Acquired absence of other specified parts of digestive tract; F17.210 Nicotine dependence, cigarettes, uncomplicated; Z88.1 Allergy status to other antibiotic agents; Z88.6 Allergy status to analgesic agent
CPT/HCPCS: 36415; 74020; 80053; 81001; 83690; 85025; 86140; 87086; 87088; 87186; 96361; 96374; 96375; 96376; 99284; A9270; G0480; J1170; J2060; J2405; J7040; J7050

== ENCOUNTER 2022-01-28 15:34 | Inpatient (IN) | payer BC, MEDICAID ==
[2022-01-28] MEDS ORDERED: Albuterol/Ipratropium 3.0-0.5 MG/3 ML Neb Soln ONE (15:57)
[2022-01-28] MEDS ORDERED: Albuterol/Ipratropium 3.0-0.5 MG/3 ML Neb Soln NEB PRN (16:02)
[2022-01-28] MEDS ORDERED: Albuterol 0.5% 2.5 MG/0.5 ML Neb Soln NEB ONE (16:02)
[2022-01-28] MEDS ORDERED: Ondansetron 4 MG/2 ML SDV IVPUSH ONE (16:04)
[2022-01-28] MEDS ORDERED: Magnesium Sulfate/Water 2 GM in Premix Bag 1 BAG IV SCH (16:15)
[2022-01-28] MEDS ORDERED: Magnesium Sulfate/Water 2 GM in Premix Bag 1 BAG IV ONE (16:15)
[2022-01-28] MEDS ORDERED: Furosemide 40 MG/4 ML VIAL IVPUSH ONE (16:39)
[2022-01-28 17:25] LABS: CORONAVIRUS COVID-19 NAA NEGATIVE (NEGATIVE)
[2022-01-28] MEDS ORDERED: Albuterol/Ipratropium 3.0-0.5 MG/3 ML Neb Soln NEB ONE (18:54)
[2022-01-28] MEDS ORDERED: Acetaminophen 325 MG Tab PO PRN (19:59)
[2022-01-28] MEDS ORDERED: Ondansetron 8 MG in Sodium Chloride 0.9% 50 ML IV PRN (19:59)
[2022-01-28] MEDS ORDERED: methylPREDNISolone Sodium Succinate 125 MG/2 ML SDV IM ONE (20:09)
[2022-01-28] MEDS ORDERED: Albuterol 0.083% 2.5 MG/3 ML Neb Soln NEB PRN (20:10)
[2022-01-28] MEDS ORDERED: diphenhydrAMINE 50 MG/ML SDV IVPUSH ONE (20:38)
[2022-01-28] MEDS ORDERED: Albuterol 0.5% 2.5 MG/0.5 ML Neb Soln NEB SCH (21:00)
[2022-01-28] MEDS ORDERED: methylPREDNISolone Sodium Succinate 125 MG/2 ML SDV IVPUSH ONE (21:15)
[2022-01-28] MEDS: Sodium Chloride 0.9% 10 ML Syringe FLUSH PRN (21:25)
[2022-01-28] MEDS: cefTRIAXone 2 GM in Sodium Chloride 0.9% 100 ML IV SCH (21:32)
[2022-01-28] MEDS: Nicotine 21 MG/24 Hr Patch TRDERM SCH (21:43)
[2022-01-29] MEDS: Pantoprazole 40 MG Vial IVPUSH SCH (06:08)
[2022-01-29] MEDS: Albuterol 0.083% 2.5 MG/3 ML Neb Soln NEB SCH ×4 (06:44→21:18)
[2022-01-29] MEDS: Nicotine 21 MG/24 Hr Patch TRDERM SCH (08:40)
[2022-01-29] MEDS ORDERED: predniSONE 20 MG Tab PO ONE (10:18)
[2022-01-29] MEDS ORDERED: Furosemide 40 MG/4 ML VIAL IVPUSH ONE (10:18)
[2022-01-29] MEDS ORDERED: Levothyroxine 75 MCG Tab PO ONE (11:48)
[2022-01-29] MEDS: Enoxaparin 40 MG/0.4 ML Syringe SUBCUT SCH (12:06)
[2022-01-29] MEDS: Diltiazem 240 MG Cap.ER PO SCH (12:06)
[2022-01-29] MEDS: Insulin Regular, Human 100 Units/ML 3 ML Vial SUBCUT SCH (17:25)
[2022-01-29] MEDS: cefTRIAXone 2 GM in Sodium Chloride 0.9% 100 ML IV SCH (19:36)
[2022-01-29] MEDS: Sodium Chloride 0.9% 10 ML Syringe FLUSH PRN (19:40)
[2022-01-29] MEDS ORDERED: traZODone 50 MG Tab PO ONE (20:53)
[2022-01-30] MEDS: Enoxaparin 40 MG/0.4 ML Syringe SUBCUT SCH ×3 (01:24→23:28)
[2022-01-30] MEDS: Albuterol 0.083% 2.5 MG/3 ML Neb Soln NEB SCH ×4 (05:57→20:32)
[2022-01-30] MEDS: Levothyroxine 75 MCG Tab PO SCH (06:08)
[2022-01-30] MEDS: Pantoprazole 40 MG Vial IVPUSH SCH (06:08)
[2022-01-30] MEDS: Insulin Regular, Human 100 Units/ML 3 ML Vial SUBCUT SCH ×3 (07:34→16:30)
[2022-01-30] MEDS: Diltiazem 240 MG Cap.ER PO SCH (08:47)
[2022-01-30] MEDS: Nicotine 21 MG/24 Hr Patch TRDERM SCH (08:50)
[2022-01-30] MEDS: Spironolactone 25 MG Tab PO SCH (12:31)
[2022-01-30] MEDS: Furosemide 20 MG Tab PO SCH (12:35)
[2022-01-30] MEDS: Losartan 25 MG Tab PO SCH (12:36)
[2022-01-30] MEDS: Formoterol/Mometasone 100-5 MCG 8.8 GM Inhaler IH SCH ×2 (13:49→20:28)
[2022-01-30] MEDS ORDERED: Sodium Chloride 0.9% Inhalation Soln 3 ML Neb INH PRN (13:53)
[2022-01-30] MEDS: Sodium Chloride 3% Inhalation Soln 4 ML Neb INH SCH ×2 (16:05→20:29)
[2022-01-30] MEDS: guaiFENesin 600 MG Tab.ER PO SCH ×2 (16:21→20:50)
[2022-01-30] MEDS: LORazepam 0.5 MG Tab PO PRN (16:21)
[2022-01-30] MEDS: Sertraline 50 MG Tab PO SCH (16:21)
[2022-01-30] MEDS: cefTRIAXone 2 GM in Sodium Chloride 0.9% 100 ML IV SCH (20:48)
[2022-01-30] MEDS: Aspirin 81 MG Tab.Chew PO SCH (20:50)
[2022-01-30] MEDS: traZODone 50 MG Tab PO PRN (23:29)
[2022-01-31] MEDS: Formoterol/Mometasone 100-5 MCG 8.8 GM Inhaler IH SCH ×2 (05:26→20:22)
[2022-01-31] MEDS: Sodium Chloride 3% Inhalation Soln 4 ML Neb INH SCH ×4 (05:26→20:21)
[2022-01-31] MEDS: Albuterol 0.083% 2.5 MG/3 ML Neb Soln NEB SCH ×4 (05:26→20:21)
[2022-01-31] MEDS: Levothyroxine 75 MCG Tab PO SCH (06:46)
[2022-01-31] MEDS: Pantoprazole 40 MG Vial IVPUSH SCH (06:47)
[2022-01-31] MEDS: Insulin Regular, Human 100 Units/ML 3 ML Vial SUBCUT SCH ×2 (08:47→17:11)
[2022-01-31] MEDS: Spironolactone 25 MG Tab PO SCH (08:50)
[2022-01-31] MEDS: Diltiazem 240 MG Cap.ER PO SCH (08:50)
[2022-01-31] MEDS: guaiFENesin 600 MG Tab.ER PO SCH ×2 (08:50→20:41)
[2022-01-31] MEDS: Furosemide 20 MG Tab PO SCH (08:51)
[2022-01-31] MEDS: Losartan 25 MG Tab PO SCH (08:51)
[2022-01-31] MEDS: Nicotine 21 MG/24 Hr Patch TRDERM SCH (08:51)
[2022-01-31] MEDS: Sertraline 50 MG Tab PO SCH (08:51)
[2022-01-31] MEDS: Tiotropium Bromide 4 GM Inhalation Spray (2.5mcg/1 dose; 10 doses) INH SCH (09:04)
[2022-01-31] MEDS: Enoxaparin 40 MG/0.4 ML Syringe SUBCUT SCH (11:12)
[2022-01-31] MEDS ORDERED: predniSONE 20 MG Tab PO ONE (11:18)
[2022-01-31] MEDS: LORazepam 0.5 MG Tab PO PRN (15:41)
[2022-01-31] MEDS: Aspirin 81 MG Tab.Chew PO SCH (20:40)
[2022-01-31] MEDS: traZODone 50 MG Tab PO PRN (20:40)
[2022-01-31] MEDS: cefTRIAXone 2 GM in Sodium Chloride 0.9% 100 ML IV SCH (20:42)
[2022-01-31] MEDS: Thiamine 100 MG Tab PO SCH (20:42)
[2022-02-01] MEDS: Enoxaparin 40 MG/0.4 ML Syringe SUBCUT SCH ×3 (00:31→23:14)
[2022-02-01] MEDS: Sodium Chloride 3% Inhalation Soln 4 ML Neb INH SCH ×4 (05:59→20:58)
[2022-02-01] MEDS: Albuterol 0.083% 2.5 MG/3 ML Neb Soln NEB SCH ×4 (05:59→21:02)
[2022-02-01] MEDS: Formoterol/Mometasone 100-5 MCG 8.8 GM Inhaler IH SCH ×2 (05:59→20:57)
[2022-02-01] MEDS: Pantoprazole 40 MG Vial IVPUSH SCH (06:11)
[2022-02-01] MEDS: Levothyroxine 75 MCG Tab PO SCH (06:11)
[2022-02-01] MEDS: Insulin Regular, Human 100 Units/ML 3 ML Vial SUBCUT SCH ×2 (07:51→16:50)
[2022-02-01] MEDS: guaiFENesin 600 MG Tab.ER PO SCH ×2 (08:04→22:39)
[2022-02-01] MEDS: Furosemide 20 MG Tab PO SCH (08:05)
[2022-02-01] MEDS: Sertraline 50 MG Tab PO SCH (08:05)
[2022-02-01] MEDS: Losartan 25 MG Tab PO SCH (08:05)
[2022-02-01] MEDS: Thiamine 100 MG Tab PO SCH ×2 (08:06→22:10)
[2022-02-01] MEDS: Spironolactone 25 MG Tab PO SCH (08:06)
[2022-02-01] MEDS: predniSONE 20 MG Tab PO SCH (08:08)
[2022-02-01] MEDS: Nicotine 21 MG/24 Hr Patch TRDERM SCH (08:08)
[2022-02-01] MEDS: Diltiazem 240 MG Cap.ER PO SCH (08:09)
[2022-02-01] MEDS: Tiotropium Bromide 4 GM Inhalation Spray (2.5mcg/1 dose; 10 doses) INH SCH (08:59)
[2022-02-01] MEDS: LORazepam 0.5 MG Tab PO PRN (16:12)
[2022-02-01] MEDS: cefTRIAXone 2 GM in Sodium Chloride 0.9% 100 ML IV SCH (19:53)
[2022-02-01] MEDS: Aspirin 81 MG Tab.Chew PO SCH (22:39)
[2022-02-01] MEDS: traZODone 50 MG Tab PO PRN (22:39)
[2022-02-02] MEDS: Formoterol/Mometasone 100-5 MCG 8.8 GM Inhaler IH SCH ×2 (06:06→20:11)
[2022-02-02] MEDS: Albuterol 0.083% 2.5 MG/3 ML Neb Soln NEB SCH ×4 (06:06→20:10)
[2022-02-02] MEDS: Sodium Chloride 3% Inhalation Soln 4 ML Neb INH SCH ×4 (06:07→20:10)
[2022-02-02] MEDS: Pantoprazole 40 MG Vial IVPUSH SCH (06:17)
[2022-02-02] MEDS: Levothyroxine 75 MCG Tab PO SCH (06:17)
[2022-02-02] MEDS: predniSONE 20 MG Tab PO SCH (06:17)
[2022-02-02] MEDS: Insulin Regular, Human 100 Units/ML 3 ML Vial SUBCUT SCH ×2 (06:32→17:07)
[2022-02-02] MEDS: Nicotine 21 MG/24 Hr Patch TRDERM SCH (08:10)
[2022-02-02] MEDS: Sertraline 50 MG Tab PO SCH (08:11)
[2022-02-02] MEDS: Spironolactone 25 MG Tab PO SCH (08:11)
[2022-02-02] MEDS: Furosemide 20 MG Tab PO SCH (08:11)
[2022-02-02] MEDS: Diltiazem 240 MG Cap.ER PO SCH (08:11)
[2022-02-02] MEDS: Thiamine 100 MG Tab PO SCH ×2 (08:11→20:26)
[2022-02-02] MEDS: Losartan 25 MG Tab PO SCH (08:12)
[2022-02-02] MEDS: guaiFENesin 600 MG Tab.ER PO SCH ×2 (08:12→20:26)
[2022-02-02] MEDS: Tiotropium Bromide 4 GM Inhalation Spray (2.5mcg/1 dose; 10 doses) INH SCH (09:37)
[2022-02-02] MEDS: Enoxaparin 40 MG/0.4 ML Syringe SUBCUT SCH ×2 (11:00→23:46)
[2022-02-02] MEDS: Prenatal Multivitamin with Calcium/Folic Acid/Iron Tab PO SCH (12:24)
[2022-02-02] MEDS: cefTRIAXone 2 GM in Sodium Chloride 0.9% 100 ML IV SCH (19:36)
[2022-02-02] MEDS: Aspirin 81 MG Tab.Chew PO SCH (20:26)
[2022-02-02] MEDS: traZODone 50 MG Tab PO PRN (20:27)
[2022-02-02] MEDS: LORazepam 0.5 MG Tab PO PRN (20:51)
[2022-02-03] MEDS: Levothyroxine 75 MCG Tab PO SCH (05:50)
[2022-02-03] MEDS: Pantoprazole 40 MG Vial IVPUSH SCH (05:51)
[2022-02-03] MEDS: Sodium Chloride 3% Inhalation Soln 4 ML Neb INH SCH ×4 (05:56→20:00)
[2022-02-03] MEDS: Albuterol 0.083% 2.5 MG/3 ML Neb Soln NEB SCH ×4 (05:56→20:00)
[2022-02-03] MEDS: Formoterol/Mometasone 100-5 MCG 8.8 GM Inhaler IH SCH ×2 (05:57→20:00)
[2022-02-03] MEDS: predniSONE 20 MG Tab PO SCH (06:01)
[2022-02-03] MEDS: Insulin Regular, Human 100 Units/ML 3 ML Vial SUBCUT SCH ×3 (06:33→16:49)
[2022-02-03] MEDS: Prenatal Multivitamin with Calcium/Folic Acid/Iron Tab PO SCH (08:21)
[2022-02-03] MEDS: Sertraline 50 MG Tab PO SCH (08:21)
[2022-02-03] MEDS: guaiFENesin 600 MG Tab.ER PO SCH ×2 (08:21→20:44)
[2022-02-03] MEDS: Diltiazem 240 MG Cap.ER PO SCH (08:22)
[2022-02-03] MEDS: Furosemide 20 MG Tab PO SCH (08:22)
[2022-02-03] MEDS: Spironolactone 25 MG Tab PO SCH (08:22)
[2022-02-03] MEDS: Losartan 25 MG Tab PO SCH (08:23)
[2022-02-03] MEDS: Nicotine 21 MG/24 Hr Patch TRDERM SCH (08:28)
[2022-02-03] MEDS: Thiamine 100 MG Tab PO SCH (08:42)
[2022-02-03] MEDS: Tiotropium Bromide 4 GM Inhalation Spray (2.5mcg/1 dose; 10 doses) INH SCH (09:17)
[2022-02-03] MEDS: Enoxaparin 40 MG/0.4 ML Syringe SUBCUT SCH (11:21)
[2022-02-03] MEDS ORDERED: Insulin Regular, Human 100 Units/ML 3 ML Vial SUBCUT SCH (15:00)
[2022-02-03] MEDS: Aspirin 81 MG Tab.Chew PO SCH (20:44)
[2022-02-03] MEDS: traZODone 50 MG Tab PO PRN (22:19)
[2022-02-04] MEDS: Enoxaparin 40 MG/0.4 ML Syringe SUBCUT SCH ×2 (00:18→12:01)
[2022-02-04] MEDS: LORazepam 0.5 MG Tab PO PRN (00:18)
[2022-02-04] MEDS: Sodium Chloride 3% Inhalation Soln 4 ML Neb INH SCH ×2 (05:49→09:26)
[2022-02-04] MEDS: Albuterol 0.083% 2.5 MG/3 ML Neb Soln NEB SCH ×4 (05:49→20:21)
[2022-02-04] MEDS: Formoterol/Mometasone 100-5 MCG 8.8 GM Inhaler IH SCH ×2 (05:50→20:21)
[2022-02-04] MEDS: Levothyroxine 75 MCG Tab PO SCH (06:26)
[2022-02-04] MEDS: Pantoprazole 40 MG Tab.CR PO SCH (06:26)
[2022-02-04] MEDS ORDERED: predniSONE 20 MG Tab PO SCH (07:00)
[2022-02-04] MEDS: Nicotine 21 MG/24 Hr Patch TRDERM SCH (08:21)
[2022-02-04] MEDS: Diltiazem 240 MG Cap.ER PO SCH (08:21)
[2022-02-04] MEDS: Prenatal Multivitamin with Calcium/Folic Acid/Iron Tab PO SCH (08:21)
[2022-02-04] MEDS: Losartan 25 MG Tab PO SCH (08:21)
[2022-02-04] MEDS: guaiFENesin 600 MG Tab.ER PO SCH ×2 (08:22→20:41)
[2022-02-04] MEDS: Furosemide 20 MG Tab PO SCH (08:22)
[2022-02-04] MEDS: Spironolactone 25 MG Tab PO SCH (08:22)
[2022-02-04] MEDS: Sertraline 50 MG Tab PO SCH (08:22)
[2022-02-04] MEDS: Insulin Regular, Human 100 Units/ML 3 ML Vial SUBCUT SCH ×3 (08:43→17:50)
[2022-02-04] MEDS ORDERED: Thiamine 100 MG Tab PO SCH (09:00)
[2022-02-04] MEDS: Tiotropium Bromide 4 GM Inhalation Spray (2.5mcg/1 dose; 10 doses) INH SCH (09:26)
[2022-02-04] MEDS: Aspirin 81 MG Tab.Chew PO SCH (20:41)
[2022-02-04] MEDS: traZODone 50 MG Tab PO PRN (22:48)
[2022-02-05] MEDS: Enoxaparin 40 MG/0.4 ML Syringe SUBCUT SCH ×2 (00:06→11:08)
[2022-02-05] MEDS: LORazepam 0.5 MG Tab PO PRN ×2 (00:06→16:30)
[2022-02-05] MEDS: Levothyroxine 75 MCG Tab PO SCH (05:57)
[2022-02-05] MEDS: Pantoprazole 40 MG Tab.CR PO SCH (05:57)
[2022-02-05] MEDS: Formoterol/Mometasone 100-5 MCG 8.8 GM Inhaler IH SCH ×2 (06:08→20:31)
[2022-02-05] MEDS: Albuterol 0.083% 2.5 MG/3 ML Neb Soln NEB SCH ×4 (06:08→20:31)
[2022-02-05] MEDS: predniSONE 10 MG Tab PO SCH (07:41)
[2022-02-05] MEDS: Insulin Regular, Human 100 Units/ML 3 ML Vial SUBCUT SCH ×3 (07:43→16:32)
[2022-02-05] MEDS: Spironolactone 25 MG Tab PO SCH (08:26)
[2022-02-05] MEDS: Thiamine 100 MG Tab PO SCH (08:26)
[2022-02-05] MEDS: Nicotine 21 MG/24 Hr Patch TRDERM SCH (08:26)
[2022-02-05] MEDS: guaiFENesin 600 MG Tab.ER PO SCH ×2 (08:27→20:18)
[2022-02-05] MEDS: Furosemide 20 MG Tab PO SCH (08:27)
[2022-02-05] MEDS: Losartan 25 MG Tab PO SCH (08:27)
[2022-02-05] MEDS: Diltiazem 240 MG Cap.ER PO SCH (08:27)
[2022-02-05] MEDS: Prenatal Multivitamin with Calcium/Folic Acid/Iron Tab PO SCH (08:27)
[2022-02-05] MEDS: Sertraline 50 MG Tab PO SCH (08:27)
[2022-02-05] MEDS: Tiotropium Bromide 4 GM Inhalation Spray (2.5mcg/1 dose; 10 doses) INH SCH (09:52)
[2022-02-05] MEDS: traZODone 50 MG Tab PO PRN (20:17)
[2022-02-05] MEDS: Aspirin 81 MG Tab.Chew PO SCH (20:18)
[2022-02-06] MEDS: Enoxaparin 40 MG/0.4 ML Syringe SUBCUT SCH ×2 (00:07→13:24)
[2022-02-06] MEDS: LORazepam 0.5 MG Tab PO PRN ×3 (00:08→13:37)
[2022-02-06] MEDS: Levothyroxine 75 MCG Tab PO SCH (06:05)
[2022-02-06] MEDS: Pantoprazole 40 MG Tab.CR PO SCH (06:05)
[2022-02-06] MEDS: Formoterol/Mometasone 100-5 MCG 8.8 GM Inhaler IH SCH ×2 (06:06→21:09)
[2022-02-06] MEDS: Albuterol 0.083% 2.5 MG/3 ML Neb Soln NEB SCH ×4 (06:06→21:05)
[2022-02-06] MEDS: Insulin Regular, Human 100 Units/ML 3 ML Vial SUBCUT SCH ×3 (06:35→18:09)
[2022-02-06] MEDS: Tiotropium Bromide 4 GM Inhalation Spray (2.5mcg/1 dose; 10 doses) INH SCH (08:59)
[2022-02-06] MEDS: Sertraline 50 MG Tab PO SCH (09:42)
[2022-02-06] MEDS: Spironolactone 25 MG Tab PO SCH (09:43)
[2022-02-06] MEDS: Diltiazem 240 MG Cap.ER PO SCH (09:43)
[2022-02-06] MEDS: Losartan 25 MG Tab PO SCH (09:43)
[2022-02-06] MEDS: Furosemide 20 MG Tab PO SCH (09:45)
[2022-02-06] MEDS: guaiFENesin 600 MG Tab.ER PO SCH ×2 (09:45→21:29)
[2022-02-06] MEDS: Prenatal Multivitamin with Calcium/Folic Acid/Iron Tab PO SCH (09:45)
[2022-02-06] MEDS: Thiamine 100 MG Tab PO SCH (09:45)
[2022-02-06] MEDS: Nicotine 21 MG/24 Hr Patch TRDERM SCH (09:45)
[2022-02-06] MEDS: predniSONE 10 MG Tab PO SCH ×2 (09:48→10:12)
[2022-02-06] MEDS: Aspirin 81 MG Tab.Chew PO SCH (21:28)
[2022-02-07] MEDS: Enoxaparin 40 MG/0.4 ML Syringe SUBCUT SCH ×2 (00:35→14:03)
[2022-02-07] MEDS: traZODone 50 MG Tab PO PRN (00:37)
[2022-02-07] MEDS: Albuterol 0.083% 2.5 MG/3 ML Neb Soln NEB SCH ×2 (06:12→09:20)
[2022-02-07] MEDS: Formoterol/Mometasone 100-5 MCG 8.8 GM Inhaler IH SCH (06:12)
[2022-02-07] MEDS: Levothyroxine 75 MCG Tab PO SCH (06:57)
[2022-02-07] MEDS: predniSONE 10 MG Tab PO SCH (06:57)
[2022-02-07] MEDS: Pantoprazole 40 MG Tab.CR PO SCH (07:44)
[2022-02-07] MEDS: Insulin Regular, Human 100 Units/ML 3 ML Vial SUBCUT SCH ×2 (07:52→11:38)
[2022-02-07] MEDS: Nicotine 21 MG/24 Hr Patch TRDERM SCH (08:06)
[2022-02-07] MEDS: Prenatal Multivitamin with Calcium/Folic Acid/Iron Tab PO SCH (08:08)
[2022-02-07] MEDS: Spironolactone 25 MG Tab PO SCH (08:08)
[2022-02-07] MEDS: guaiFENesin 600 MG Tab.ER PO SCH (08:09)
[2022-02-07] MEDS: Diltiazem 240 MG Cap.ER PO SCH (08:09)
[2022-02-07] MEDS: Thiamine 100 MG Tab PO SCH (08:10)
[2022-02-07] MEDS: Sertraline 50 MG Tab PO SCH (08:10)
[2022-02-07] MEDS: Losartan 25 MG Tab PO SCH (08:10)
[2022-02-07] MEDS: Furosemide 20 MG Tab PO SCH (08:10)
[2022-02-07] MEDS: Tiotropium Bromide 4 GM Inhalation Spray (2.5mcg/1 dose; 10 doses) INH SCH (09:20)
[2022-02-07 14:00] VITALS: BP 140/86; PULSE 95
== END 2022-02-07 13:15 | disposition home or self-care (01) | DRG 189 ==
LOC: JD.ED 15:34 → JD.ICU 19:14 → JD.ED 20:50
PROVIDERS: ADMIT Emergency Medicine; ATTEND Internal Medicine
PROC: 5A09457 Assistance with Respiratory Ventilation, 24-96 Consecutive Hours, Continuous Positive Airway Pressure (ICD-10-PCS; principal; 2022-01-28)
DX: J96.21 Acute and chronic respiratory failure with hypoxia (principal); J44.1 Chronic obstructive pulmonary disease with (acute) exacerbation; F33.1 Major depressive disorder, recurrent, moderate; F10.232 Alcohol dependence with withdrawal with perceptual disturbance; N39.0 Urinary tract infection, site not specified; I11.0 Hypertensive heart disease with heart failure; J96.22 Acute and chronic respiratory failure with hypercapnia; I50.811 Acute right heart failure; E11.9 Type 2 diabetes mellitus without complications; E78.00 Pure hypercholesterolemia, unspecified; K21.9 Gastro-esophageal reflux disease without esophagitis; F41.9 Anxiety disorder, unspecified; G89.29 Other chronic pain; M54.9 Dorsalgia, unspecified; F17.200 Nicotine dependence, unspecified, uncomplicated; F19.10 Other psychoactive substance abuse, uncomplicated; G47.00 Insomnia, unspecified; E86.0 Dehydration; R79.82 Elevated C-reactive protein (CRP); K59.03 Drug induced constipation; F15.10 Other stimulant abuse, uncomplicated; R94.5 Abnormal results of liver function studies; E87.6 Hypokalemia; E83.42 Hypomagnesemia; R11.10 Vomiting, unspecified; Z20.822 Contact with and (suspected) exposure to COVID-19; E03.9 Hypothyroidism, unspecified; Z88.1 Allergy status to other antibiotic agents; Z90.49 Acquired absence of other specified parts of digestive tract; Z87.440 Personal history of urinary (tract) infections; Z56.0 Unemployment, unspecified; Z88.5 Allergy status to narcotic agent; Z79.52 Long term (current) use of systemic steroids
CPT/HCPCS: 0241U; 36415; 36600; 71045; 71045-26; 71046; 71046-26; 80053; 80306; 80307; 81001; 82803; 82947; 83036; 83605; 83690; 83735; 83880; 84439; 84443; 84484; 85025; 85379; 85610; 85730; 86140; 87040; 87641; 92523-GN; 93005; 93010; 93306; 94640; 94660; 94668; 94762; 96365; 96366; 96375; 97116-GP; 97161-GP; 99285; 99285-25; A9270-GY; C9113; J0696; J1200; J1650; J1815-GY; J1940; J2405; J2930; J3475; J3490; J7512; J7620-GY

== ENCOUNTER 2022-07-01 18:41 | Emergency (ER) | payer MEDICAID ==
[2022-07-01 19:09] VITALS: PULSE 101
[2022-07-01] MEDS ORDERED: Sodium Chloride 0.9% 10 ML Syringe FLUSH PRN (19:24)
[2022-07-01] MEDS ORDERED: Albuterol 0.083% 2.5 MG/3 ML Neb Soln NEB ONE (19:44)
[2022-07-01 20:17] LABS: ESTIMATED GFR 76 mL/min (>60)
[2022-07-01 22:26] VITALS: BP 160/96
== END 2022-07-01 21:50 | disposition home or self-care (01) ==
LOC: JD.ED 18:41
DX: I11.0 Hypertensive heart disease with heart failure (principal); I50.9 Heart failure, unspecified; F15.10 Other stimulant abuse, uncomplicated; F17.210 Nicotine dependence, cigarettes, uncomplicated; K21.9 Gastro-esophageal reflux disease without esophagitis; F41.9 Anxiety disorder, unspecified; Z20.822 Contact with and (suspected) exposure to COVID-19; Z79.899 Other long term (current) drug therapy; Z88.1 Allergy status to other antibiotic agents; Z88.6 Allergy status to analgesic agent
CPT/HCPCS: 36415; 70450; 70450-26; 71045; 71045-26; 80053; 83735; 83880; 84484; 85025; 86140; 93005; 93010; 94640; 99284; U0002

== ENCOUNTER 2025-01-04 22:43 | Emergency (ER) | payer BC, MEDICAID ==
[2025-01-04 23:02] VITALS: BP 176/96; PULSE 103
[2025-01-04] MEDS: LORazepam 1 MG Tab PO ONE (23:26)
== END 2025-01-04 23:28 | disposition home or self-care (01) ==
LOC: JD.ED 22:43
DX: F41.9 Anxiety disorder, unspecified (principal); F10.20 Alcohol dependence, uncomplicated; F15.10 Other stimulant abuse, uncomplicated; F14.10 Cocaine abuse, uncomplicated; I11.0 Hypertensive heart disease with heart failure; I50.9 Heart failure, unspecified; E78.00 Pure hypercholesterolemia, unspecified; F17.210 Nicotine dependence, cigarettes, uncomplicated; J44.9 Chronic obstructive pulmonary disease, unspecified; Z79.899 Other long term (current) drug therapy; Z79.84 Long term (current) use of oral hypoglycemic drugs; Z88.0 Allergy status to penicillin; Z88.5 Allergy status to narcotic agent; Y90.9 Presence of alcohol in blood, level not specified
CPT/HCPCS: 93005; 99284; A9270; 93010